=== PATIENT | male | born 1975 | race American Indian/Alaskan Native ===

== ENCOUNTER 2019-10-04 18:32 | Emergency (ER) | payer SELFPAY ==
--- NOTE | 2019-10-04 19:01 | Emergency Department Report ---
ED CPR HPI - General Chief Complaint: Cardiac Arrest/CPR Stated Complaint: CARDIAC ARREST Time Seen by Provider: 10/04/19 18:56 Source: EMS Mode of arrival: Stretcher Limitations: Other - History of Present Illness Initial Comments: Patient is 44 years old male with history of congestive heart failure with ejection fracture off 10% and seizure. Patient brought to the emergency room via EMS in full cardiac arrest with CPR in progress. EMS stated that patient was found in his car unresponsive, unknown time. EMS stated that family members in the car and stated that patient was driving and all of a sudden stopped. EMS stated that patient found to be in PEA. ACLS protocol initiated by EMS and continued in the emergency room. EMS inserted a Smooth airway. Patient rhythm showed ventricular fibrillation patient was shocked 3 times by EMS. In the emergency room patient continued to be in PEA. Patient also had 3 episodes of ventricular fibrillation for which patient received 3 shocks also patient received amiodarone 300 mg. Patient received bicarbonate. Unfortunately patient remained pulseless after 45 minutes of resuscitation. Patient p ronounced at 18:45 For further information please refer to code sheets. Family informed. Complaint: stopped breathing, collapsed during activity Place: street Bystander CPR Performed: No AED Applied by Bystander/Primary Substance Abuse Counselor: No Shock Advised: No Initial Findings in the Field: no pulse, VTACH/VFIB, PEA ROSC in the Field: No Associated Injuries: No Treatments Prior to Arrival: other airway device (smooth), chest compressions, defribrillated shocks # (3), epinephrine mgs # (3) - Related Data Allergies Allergy/AdvReac Type Severity Reaction Status Date / Time No Known Allergies Allergy Verified 05/14/15 04:15 ED Review of Systems ROS: Stated complaint: CARDIAC ARREST Other details as noted in HPI Comment: Unobtainable due to pts medical conditions ED Past Medical Hx - Past Medical History Hx Hypertension: Yes (1996) Hx Congestive Heart Failure: No Hx Diabetes: No Hx Asthma: Yes Hx COPD: No Additional medical history: stomach ulcers - Social History Smoking Status: Current Every Day Smoker ED Physical Exam - General Limitations: Other General appearance: other (CPR IN PROGRESS) - Head Head exam: Present: atraumatic - Eye Pupils: Present: other (PUPILS FIXED AND DILATED) - Respiratory Respiratory exam: Present: other (no spontaneous breathing.) - Cardiovascular Cardiovascular Exam: Present: other (no heart tones.) - GI/Abdominal GI/Abdominal exam: Present: soft. Absent: distended - Neurological Exam Neurological exam: Present: other (CPR in progress) - Skin Skin exam: Present: warm, dry, intact Critical Care Time: Yes Critical care time in (mins) excluding proc time.: 45 Critical care attestation.: If time is entered above; I have spent that time in minutes in the direct care of this critically ill patient, excluding procedure time. ED Disposition Clinical Impression: Cardiopulmonary arrest Disposition: DC-20 Is pt being admited?: No Condition: Stable
[2019-10-04] MEDS ORDERED: AMIODARONE 150 MG/3 ML INJ IV ONE (23:00)
[2019-10-04] MEDS ORDERED: SODIUM BICARB 8.4% 50 MEQ/50 ML SYRINGE IV ONE (23:00)
[2019-10-04] MEDS ORDERED: EPINEPHrine 1:10,000 1 MG/10 ML SYRINGE ONE (23:00)
== END 2019-10-04 23:50 ==
LOC: ED 18:32
DX: I46.9 Cardiac arrest, cause unspecified (principal); I11.0 Hypertensive heart disease with heart failure; I50.9 Heart failure, unspecified; J45.909 Unspecified asthma, uncomplicated; F17.200 Nicotine dependence, unspecified, uncomplicated
CPT/HCPCS: 82962; 92950; 99291; J0171; J0282; 31500